=== PATIENT | female | born 1980 | race Caucasian/White ===

== ENCOUNTER 2016-11-01 11:42 | Emergency (ER) | payer SELFPAY ==
[~2016-11-01] VITALS: Ht 170.2 cm; Wt 83.0 kg
[~2016-11-01 11:42] MED LIST: IBUP200T77 PO
[2016-11-01] MEDS ORDERED: ACETAMINOPHEN 500 MG TABLET PO ONE (12:45)
[2016-11-01] MEDS ORDERED: IBUPROFEN 800 MG TABLET. PO ONE (12:45)
[2016-11-01 12:55] VITALS: BP 123/74
--- NOTE | 2016-11-01 12:55 | RAD ---
Exam performed: 2 views of the chest. Indication: Fever for 2 days Date of Service:11/01/2016 2:37 PM . Comparison : Not available. Findings: PA and lateral radiographs of the chest reveal a normal cardiomediastinal contour. The lungs are clear. No pleural fluid is seen. The visualized osseous structures are unremarkable. Impression: Radiographically normal chest.
[2016-11-01 13:20] LABS: NEGATIVE OBC MONO NEG; POSITIVE OBC MONO POS
[2016-11-01 13:37] LABS: OBC FLU VALID
[2016-11-01] MEDS ORDERED: IBUP-1060 PO (13:44)
[2016-11-01] MEDS ORDERED: AMOX875T PO (13:44)
[2016-11-01] MEDS ORDERED: PRED50TA PO (13:44)
--- NOTE | 2016-11-01 13:44 | PHYS DOC ---
Past Medical History Past Medical History: No Pertinent History Past Surgical History: Alcohol Use: None Drug Use: None Adult General Chief Complaint Chief Complaint: OTHER COMPLAINTS HPI HPI Patient is a 36 year old female who presents with swelling on the right side of her neck that she noted 2 days ago. Patient is also complaining of a fever since this morning. Patient denies any coughing shortness of breath or sore throat or ear pain. Review of Systems Review of Systems Constitutional: Fever Eyes: Denies change in visual acuity, redness, or eye pain [] HENT: swelling on the right side of her neck Respiratory: Denies cough or shortness of breath [] Cardiovascular: No additional information not addressed in HPI [] GI: Denies abdominal pain, nausea, vomiting, bloody stools or diarrhea [] : Denies dysuria or hematuria [] Musculoskeletal: Denies back pain or joint pain [] Integument: Denies rash or skin lesions [] Neurologic: Denies headache, focal weakness or sensory changes [] Current Medications Current Medications Current Medications Medications (Trade) Dose Ordered Sig/Cierra Start Time Stop Time Status Last Admin Dose Admin Acetaminophen (Tylenol) 1,000 mg 1X ONCE 11/01/16 12:45 11/01/16 12:46 DC 11/01/16 12:53 1,000 MG Ibuprofen (Motrin) 800 mg 1X ONCE 11/01/16 12:45 11/01/16 12:46 DC 11/01/16 12:53 800 MG Allergies Allergies Allergies Coded Allergies Type Severity Reaction Last Updated Verified No Known Drug Allergies 12/09/15 No Physical Exam Physical Exam Constitutional: Well developed, well nourished, no acute distress, non-toxic appearance. [] HENT: Normocephalic, atraumatic, bilateral external ears normal, oropharynx moist, no oral exudates, nose normal. [] +2 right anterior cervical adenopathy Eyes: PERRLA, EOMI, conjunctiva normal, no discharge. [] Neck: Normal range of motion, no tenderness, supple, no stridor. [] Cardiovascular:Heart rate regular rhythm, no murmur [] Lungs & Thorax: Bilateral breath sounds clear to auscultation [] Abdomen: Bowel sounds normal, soft, no tenderness, no masses, no pulsatile masses. [] Skin: Warm, dry, no erythema, no rash. [] Back: No tenderness, no CVA tenderness. [] Extremities: No tenderness, no cyanosis, no clubbing, ROM intact, no edema. [] Neurologic: Alert and oriented X 3, normal motor function, normal sensory function, no focal deficits noted. [] Psychologic: Affect normal, judgement normal, mood normal. [] Current Patient Data Vital Signs Vital Signs Date Time Temp Pulse Resp B/P (MAP) Pulse Ox O2 Delivery O2 Flow Rate FiO2 11/01/16 12:55 104 18 123/74 (90) 97 Room Air 11/01/16 11:55 102.1 102.1 Lab Values Laboratory Tests Test 11/01/16 12:50 11/01/16 13:00 Influenza Type A Antigen Negative (NEGATIVE) Influenza Type B Antigen Negative (NEGATIVE) Heterophil Agglutinins Negative (NEGATIVE) EKG EKG [] Radiology/Procedures Radiology/Procedures [] Course & Med Decision Making Course & Med Decision Making Pertinent Labs and Imaging studies reviewed. (See chart for details) Patient has +2 right anterior cervical adenopathy with a fever over 102.1, no sore throat. Negative rapid strep, chest x-ray interpreted by radiologist was negative for any acute findings, negative for mononucleosis, negative for influenza A or B. This is a reactive lymph node. I went ahead and put her on amoxicillin, ibuprofen and prednisone. Strep culture was sent to lab. Provided return precautions and discharged in stable condition. Dragon Disclaimer Dragon Disclaimer This electronic medical record was generated, in whole or in part, using a voice recognition dictation system. Departure Departure Impression: Primary Impression: Fever Additional Impression: Lymphadenopathy, cervical Disposition: 01 HOME, SELF-CARE Condition: STABLE Referrals: UNKNOWN PCP NAME (PCP) Follow-up with your doctor in one week Patient Instructions: Fever, Adult Additional Instructions: You were seen for anterior cervical adenopathy/swollen lymph node with a fever. This is a reactive lymph node. Your strep test was negative for strep A, we sent it for culture for strep B. We put you on antibiotics for 10 days. Take them as prescribed. Your Influenza test was negative, your chest x-ray was negative for any acute findings, you were also negative for mononucleosis. We put you on ibuprofen as well as prednisone. This will help with the swelling. Ibuprofen will also help with the fever, take it every 6 hours. Take Tylenol every 4 hours. Follow-up with your doctor in one week. Come back to the emergency room if symptoms worsen. Scripts Ibuprofen (IBUPROFEN) 800 Mg Tablet 800 MG PO PRN Q6HRS Y for INFLAMMATION, #30 TAB Prov: CHERY LOPEZ APRN 11/01/16 Prednisone (PREDNISONE) 50 Mg Tablet 1 TAB PO DAILY, #5 TAB Prov: CHERY LOPEZ APRN 11/01/16 Amoxicillin (AMOXICILLIN) 875 Mg Tablet 1 TAB PO BID, #20 TAB Prov: CHERY LOPEZ APRN 11/01/16 Problem Qualifiers Primary Impression: Fever Fever type: unspecified Qualified Codes: R50.9 - Fever, unspecified CHERY LOPEZ APRN Nov 01, 2016 13:44
[2016-11-02 07:57] LABS: NEGATIVE OBC STREP NEG; POSITIVE OBC STREP POS
== END 2016-11-01 14:40 | disposition home or self-care (01) ==
LOC: ER 11:42
DX: R50.9 Fever, unspecified (principal); R59.0 Localized enlarged lymph nodes
CPT/HCPCS: 71020; 86308; 87070; 87804; 87880; 99285-25

== ENCOUNTER 2017-07-17 15:24 | Emergency (ER) | payer SELFPAY | END 2017-07-17 16:10 | disposition home or self-care (01) | LOC: ER 15:24 | DX: S60.862A Insect bite (nonvenomous) of left wrist, initial encounter (principal); M25.532 Pain in left wrist; M25.561 Pain in right knee; W57.XXXA Bitten or stung by nonvenomous insect and other nonvenomous arthropods, initial encounter; Y93.89 Activity, other specified; Y99.8 Other external cause status; Y92.89 Other specified places as the place of occurrence of the external cause | CPT/HCPCS: 99283; 99284-25 ==

== ENCOUNTER 2017-07-23 18:17 | Emergency (ER) | payer SELFPAY ==
[2017-07-23 18:43] LABS: URINE HCG POC HCG NEGATIVE (Negative)
== END 2017-07-23 19:58 | disposition home or self-care (01) ==
LOC: ER 18:17
DX: M25.561 Pain in right knee (principal)
CPT/HCPCS: 29505; 73562; 81025; 99284

== ENCOUNTER 2019-08-14 22:20 | Emergency (ER) | payer OTHER ==
[~2019-08-14] VITALS: Ht 170.2 cm; Wt 81.8 kg
[~2019-08-14 22:20] MED LIST changes: +AMOX875T PO; +DICL50TA4 PO; +IBUP-1060 PO; +MUPI15CR TP; +PRED50TA PO; +no home meds
[2019-08-14 22:30] VITALS: BP 124/81
--- NOTE | 2019-08-14 23:26 | RAD ---
Exam: Left finger 3 views INDICATION: Injury to left fifth digit TECHNIQUE: Frontal, lateral and oblique views of the left fifth digit Comparisons: None FINDINGS: Mildly displaced volar plate fracture of the middle phalanx fifth digit along the palmar surface. Mild surrounding soft tissue swelling. Bone mineralization is normal. No other fractures are identified. IMPRESSION: Mildly displaced volar plate fracture of the middle phalanx fifth digit along the palmar surface. Electronically signed by: Rosas Hope MD (08/14/2019 11:23 PM) [id number]
[2019-08-14] MEDS ORDERED: TRAM50TA PO (23:43)
--- NOTE | 2019-08-14 23:43 | PHYS DOC ---
Past Medical History Past Medical History: No Pertinent History, Other Additional Past Medical Histor: trauma to right arm at Past Surgical History: Cholecystectomy, , Tubal ligation Smoking Status: Current Every Day Smoker Alcohol Use: None Drug Use: None General Adult EDM: Chief Complaint: FINGER INJURY HPI: HPI: Patient is a 38 year old female who presents with complaint of left finger injury after getting her finger stuck in 1 of her children's toys and twisting it. Patient states that she has swelling of her knuckle with moderate pain. She feels like it is probably not broken because she is able to move it. She denies any other injuries. She rates pain as moderate. [] Review of Systems: Review of Systems: Constitutional: Denies fever or chills. [] Respiratory: Denies cough or shortness of breath. [] Cardiovascular: Denies chest pain or edema. [] Musculoskeletal: Complains of left small finger swelling and pain. [] Integument: Denies rash. [] Heart Score: Risk Factors: Risk Factors: DM, Current or recent (<one month) smoker, HTN, HLP, family history of CAD, obesity. Risk Scores: Score 0 - 3: 2.5% MACE over next 6 weeks - Discharge Home Score 4 - 6: 20.3% MACE over next 6 weeks - Admit for Clinical Observation Score 7 - 10: 72.7% MACE over next 6 weeks - Early Invasive Strategies Allergies: Allergies: Allergies Coded Allergies Type Severity Reaction Last Updated Verified No Known Drug Allergies 12/09/15 No Physical Exam: PE: Constitutional: Well developed, well nourished, no acute distress, non-toxic appearance. [] Cardiovascular: Regular rate and rhythm [] Lungs & Thorax: Bilateral breath sounds clear to auscultation [] Extremities: Examination of left small finger demonstrates soft tissue swelling and tenderness around the PIP joint. [] Current Patient Data: Vital Signs: Vital Signs Date Time Temp Pulse Resp B/P (MAP) Pulse Ox O2 Delivery O2 Flow Rate FiO2 08/14/19 22:30 99.3 80 18 124/81 (95) 99 Room Air 99.3 EKG: EKG: [] Radiology/Procedures: Radiology/Procedures: [] Impression: PROCEDURE: FINGER(S) LEFT Exam: Left finger 3 views INDICATION: Injury to left fifth digit TECHNIQUE: Frontal, lateral and oblique views of the left fifth digit Comparisons: None FINDINGS: Mildly displaced volar plate fracture of the middle phalanx fifth digit along the palmar surface. Mild surrounding soft tissue swelling. Bone mineralization is normal. No other fractures are identified. IMPRESSION: Mildly displaced volar plate fracture of the middle phalanx fifth digit along the palmar surface. Electronically signed by: Rosas Hope MD (08/14/2019 11:23 PM) [id number] Course & Med Decision Making: Course & Med Decision Making Pertinent Labs and Imaging studies reviewed. (See chart for details) [] Dragon Disclaimer: Dragon Disclaimer: This electronic medical record was generated, in whole or in part, using a voice recognition dictation system. Departure Departure Impression: Primary Impression: Finger fracture, left Qualified Codes: S62.657A - Nondisplaced fracture of middle phalanx of left little finger, initial encounter for closed fracture Disposition: HOME, SELF-CARE Condition: STABLE Referrals: NO PCP (PCP) LUIS MCKINLEY MD Patient Instructions: Finger Fracture Scripts Tramadol Hcl (TRAMADOL HCL) 50 Mg Tablet 50 MG PO Q6HRS PRN for PAIN, #12 TAB Prov: THOMAS KENNEDY Jr. DO 08/14/19 Justicifation of Admission Dx: Justifications for Admission: Justification of Admission Dx: N/A THOMAS KENNEDY Jr. DO Aug 14, 2019 23:43
== END 2019-08-15 00:10 | disposition home or self-care (01) ==
LOC: ER 22:20
DX: S62.657A Nondisplaced fracture of middle phalanx of left little finger, initial encounter for closed fracture (principal); F17.200 Nicotine dependence, unspecified, uncomplicated; W23.0XXA Caught, crushed, jammed, or pinched between moving objects, initial encounter; Y93.89 Activity, other specified; Y92.89 Other specified places as the place of occurrence of the external cause; Y99.8 Other external cause status
CPT/HCPCS: 29130; 73140; 99283

== ENCOUNTER 2020-12-07 13:04 | Emergency (ER) | payer OTHER ==
[~2020-12-07] VITALS: Ht 167.6 cm; Wt 81.2 kg
[~2020-12-07 13:04] MED LIST changes: +TRAM50TA PO
[2020-12-07 13:42] VITALS: BP 114/85
[2020-12-07] MEDS ORDERED: BACI28.43 TP (14:30)
[2020-12-07] MEDS ORDERED: CEPH500T PO (14:30)
[2020-12-07] MEDS ORDERED: DIPH,PERTUSS(ACELL),TET VAC/PF 0.5 ML SYRINGE. VAX IM ONE (14:30)
--- NOTE | 2020-12-07 14:30 | PHYS DOC ---
Past Medical History Past Medical History: No Pertinent History, Other Additional Past Medical Histor: trauma to right arm at Past Surgical History: Tubal ligation Smoking Status: Current Every Day Smoker Alcohol Use: None Drug Use: None General Adult EDM: Chief Complaint: WOUND CHECK HPI: HPI: Patient is a 40 year old female who presents to the ED today with hood to the right hand that occurred last . The patient states she has nerve injury to the right upper extremity and does not have sensation to the right hand. She states she did not notice when she burned herself. She states she probably touched the oven when she was trying to get food out of it on last week. Review of Systems: Review of Systems: Constitutional: Denies fever or chills. [] Integument: Reports right hand burn Neurologic: Denies headache, focal weakness or sensory changes. [] Psychiatric: Denies depression or anxiety. [] Heart Score: C/O Chest Pain: N/A Risk Factors: Risk Factors: DM, Current or recent (<one month) smoker, HTN, HLP, family history of CAD, obesity. Risk Scores: Score 0 - 3: 2.5% MACE over next 6 weeks - Discharge Home Score 4 - 6: 20.3% MACE over next 6 weeks - Admit for Clinical Observation Score 7 - 10: 72.7% MACE over next 6 weeks - Early Invasive Strategies Allergies: Allergies: Allergies Coded Allergies Type Severity Reaction Last Updated Verified No Known Drug Allergies 12/09/15 No Physical Exam: PE: Constitutional: Well developed, well nourished, no acute distress, non-toxic appearance. [] Skin: Right hand with mild chronic edema, right wrist in a brace. Right hand is obviously deformed with most fingers shorter than normal. Dorsal aspect proximal and of the right middle finger with 1/3 degree burn 6 x 2 cm. Dorsal aspect proximal end of the right index finger with a second-degree burn 2 cm x 0.5 cm. +2 right radial pulse. Cap refill less than 2 seconds to the right fingers. Back: No tenderness, no CVA tenderness. [] Extremities: No tenderness, no cyanosis, no clubbing, ROM intact, no edema. [] Neurologic: Alert and oriented X 3, normal motor function, normal sensory function, no focal deficits noted. [] Psychologic: Affect normal, judgement normal, mood normal. [] Current Patient Data: Vital Signs: Vital Signs Date Time Temp Pulse Resp B/P (MAP) Pulse Ox O2 Delivery O2 Flow Rate FiO2 12/07/20 13:42 98.8 72 16 114/85 (95) 95 Room Air 98.8 EKG: EKG: [] Radiology/Procedures: Radiology/Procedures: [] Course & Med Decision Making: Course & Med Decision Making Pertinent Labs and Imaging studies reviewed. (See chart for details) This is a 40-year-old female patient presented to the ED today with second and third degree hood to the right hand that occurred a week ago. 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 She was discharged on cephalexin, instructed to apply bacitracin to the hood and follow-up with [facility] wound clinic. Tetanus updated Dragon Disclaimer: Dragon Disclaimer: This electronic medical record was generated, in whole or in part, using a voice recognition dictation system. Departure Departure Impression: Primary Impression: Second degree burn of finger Qualified Codes: T23.221A - Burn of second degree of single right finger (nail) except thumb, initial encounter Additional Impression: Third degree burn of finger Qualified Codes: T23.321A - Burn of third degree of single right finger (nail) except thumb, initial encounter Disposition: 01 HOME / SELF CARE / HOMELESS Condition: STABLE Referrals: NO PCP (PCP) FELIPE CARTAGENA MD call tomorrow and set up a follow up appointment Patient Instructions: Burn Care, [id number] Additional Instructions: You have hood to your right hand. Keep the areas clean and dry. Apply bacitracin to the areas twice a day. Take the prescribed antibiotics until completed. Please contact [facility] wound clinic and set up a follow-up appointment as soon as possible. Come back to the ED at any point symptoms worsen Scripts Bacitracin (Bacitracin) 28.4 Gm Oint...g. 1 GM TP BID, #28.4 MISC Prov: CHERY LOPEZ BUFFER COPPER 12/07/20 Cephalexin (CEPHALEXIN) 500 Mg Tablet 1 TAB PO TID, #30 TAB Prov: CHERY LOPEZ BUFFER COPPER 12/07/20 HCERY LOPEZ APRN Dec 07, 2020 14:30
== END 2020-12-07 14:54 | disposition home or self-care (01) ==
LOC: ER 13:04
DX: T23.321A Burn of third degree of single right finger (nail) except thumb, initial encounter (principal); F17.200 Nicotine dependence, unspecified, uncomplicated; X08.8XXA Exposure to other specified smoke, fire and flames, initial encounter; Y93.89 Activity, other specified; Y92.89 Other specified places as the place of occurrence of the external cause; Y99.8 Other external cause status
CPT/HCPCS: 90471; 90715; 99283